=== PATIENT | female | born 1935 | race Caucasian/White ===

== ENCOUNTER → 2016-10-03 | Outpatient (CLI) | payer MEDICARE, OTHER | LOC: MW.CHIM 08:00 | DX: I48.91 Unspecified atrial fibrillation (principal) | CPT/HCPCS: 99214 ==

== ENCOUNTER → 2016-10-09 | Outpatient (CLI) | payer MEDICARE, OTHER | LOC: MW.CHFP 08:00 | PROVIDERS: ATTEND Student in an Organized Health Care Education/Training Program | DX: Z51.81 Encounter for therapeutic drug level monitoring (principal); Z79.01 Long term (current) use of anticoagulants; I48.91 Unspecified atrial fibrillation | CPT/HCPCS: 85610; 99211 ==

== ENCOUNTER → 2016-10-12 | Outpatient (CLI) | payer MEDICARE, OTHER ==
--- NOTE | 2016-10-23 19:13 | ECHO ---
The echocardiogram report can be seen in this patient's EMR in the Reports section. [facility]
== END ==
LOC: MW.US 10:45
PROVIDERS: ATTEND Internal Medicine
DX: I48.91 Unspecified atrial fibrillation (principal)
CPT/HCPCS: 93306

== ENCOUNTER → 2016-10-18 | Outpatient (CLI) | payer MEDICARE, OTHER | LOC: MW.CHFP 08:00 | PROVIDERS: ATTEND Student in an Organized Health Care Education/Training Program | DX: Z51.81 Encounter for therapeutic drug level monitoring (principal); Z79.01 Long term (current) use of anticoagulants; I48.91 Unspecified atrial fibrillation | CPT/HCPCS: 85610; 99211 ==

== ENCOUNTER → 2016-10-29 | Outpatient (CLI) | payer MEDICARE, OTHER | LOC: MW.CHFP 08:00 | PROVIDERS: ATTEND Student in an Organized Health Care Education/Training Program | DX: Z51.81 Encounter for therapeutic drug level monitoring (principal); Z79.01 Long term (current) use of anticoagulants; I48.91 Unspecified atrial fibrillation | CPT/HCPCS: 85610; 99211 ==

== ENCOUNTER → 2016-11-01 | Outpatient (CLI) | payer MEDICARE, OTHER | LOC: MW.CHFP 08:00 | PROVIDERS: ATTEND Student in an Organized Health Care Education/Training Program | DX: Z51.81 Encounter for therapeutic drug level monitoring (principal); Z79.01 Long term (current) use of anticoagulants; I48.91 Unspecified atrial fibrillation | CPT/HCPCS: 85610; 99211 ==

== ENCOUNTER → 2016-11-12 | Outpatient (CLI) | payer MEDICARE, OTHER | LOC: MW.CHFP 08:00 | PROVIDERS: ATTEND Student in an Organized Health Care Education/Training Program | DX: Z51.81 Encounter for therapeutic drug level monitoring (principal); Z79.01 Long term (current) use of anticoagulants; I48.91 Unspecified atrial fibrillation | CPT/HCPCS: 85610; 99211 ==

== ENCOUNTER → 2016-11-29 | Outpatient (CLI) | payer MEDICARE, OTHER | LOC: MW.CHFP 08:00 | PROVIDERS: ATTEND Student in an Organized Health Care Education/Training Program | DX: Z51.81 Encounter for therapeutic drug level monitoring (principal); Z79.01 Long term (current) use of anticoagulants; I48.91 Unspecified atrial fibrillation | CPT/HCPCS: 85610; 99211 ==

== ENCOUNTER → 2016-12-18 | Outpatient (CLI) | payer MEDICARE, OTHER | LOC: MW.CHIM 08:00 | PROVIDERS: ATTEND Internal Medicine | DX: I48.91 Unspecified atrial fibrillation (principal); I10 Essential (primary) hypertension; Z79.01 Long term (current) use of anticoagulants; Z95.0 Presence of cardiac pacemaker | CPT/HCPCS: 99214 ==

== ENCOUNTER → 2016-12-27 | Outpatient (CLI) | payer MEDICARE, OTHER | LOC: MW.CHFP 08:00 | PROVIDERS: ATTEND Student in an Organized Health Care Education/Training Program | DX: Z51.81 Encounter for therapeutic drug level monitoring (principal); Z79.01 Long term (current) use of anticoagulants; I48.91 Unspecified atrial fibrillation | CPT/HCPCS: 85610; 99211 ==

== ENCOUNTER 2021-05-07 00:45 | Emergency (ER) | payer MEDICARE, OTHER ==
[2021-05-07] MEDS ORDERED: Aspirin 81 MG Tab.Chew PO ONE (00:52)
[2021-05-07 01:27] LABS: BLOOD UREA NITROGEN,BUN 35 mg/dL (7.0-18.0); CARBON DIOXIDE,CO2 26.1 mmol/L (21.0-32.0); CHLORIDE,CL 98 mmol/L (98-107); GLUCOSE RANDOM 120 mg/dL (74-106); SODIUM,NA 133 mmol/L (136-145)
--- NOTE | 2021-05-07 01:27 | PCM.EKG ---
#1 Interpretation EKG Date: 05/07/21 Time: 00:51 Rhythm: Other (Atrial sensed ventricularly paced rhythm) Comparison: No Change (04/30/16) EKG Interpretation Comments: Atrial sensed ventricularly paced rhythm
--- NOTE | 2021-05-07 02:49 | CR ---
Indication: Chest pain Technique: Chest 1 view Comparison: Chest x-ray 05/09/2020 Findings/Impression: Cardiovascular and mediastinum: Mild cardiomegaly with left-sided dual lead pacemaker. Lungs and pleural space: No pleural effusion or pneumothorax. Slight patchy opacities within both lungs, likely patchy atelectasis. Bones and soft tissues: Osteopenia. Dictated by Faustino Pascal MD @ 05/07/2021 2:47:30 AM (Electronically Signed)
[2021-05-07 05:45] VITALS: BP 153/72; PULSE 62
--- NOTE | 2021-05-07 05:57 | EDM.PDOC ---
ED HPI GENERAL MEDICAL PROBLEM - General Chief Complaint: Chest Pain Stated Complaint: CHEST PAIN, NAUSEA Time Seen by Provider: 05/07/21 00:51 - History of Present Illness INITIAL COMMENTS - FREE TEXT/NARRATIVE: CHIEF COMPLAINT(S): Chest pain HISTORY OF PRESENT ILLNESS: This is an 85-year-old woman with a past medical history of hypertension and hypothyroidism who presents to the emergency department with a chief complaint of chest pain. The patient states that 4 to 5 hours prior to arrival she started to experience chest pain which she describes as pressure-like and bilateral without any radiation. She rates the pressure/pain as 0 out of 10 currently. She states that it was mild earlier. She states that she took 2 nitroglycerin tablets which seem to help with her pain. Other than the pain that happened a few hours ago she denies any exertional chest pain, dyspnea, diaphoresis, nausea or vomiting. Denies any recent travel or recent surgery. She denies any history of DVT or PE. She states that she is not vaccinated. She states that she does have a pacemaker. REVIEW OF SYSTEMS: Constitutional: Denies fever, chills. Eyes: Denies eye pain Ears, Nose, Mouth, & Throat: Denies earache Cardiovascular: Positive for chest pain. Respiratory: Denies shortness of breath Gastrointestinal: Denies Nausea, vomiting, diarrhea, hematochezia. Genitourinary: Denies hematuria Skin:Denies a rash MSK: Denies joint pain Neurological: Denies blurred vision Psychiatric: Denies depression PAST MEDICAL HISTORY: As per history of present illness and as reviewed below otherwise noncontributory. SURGICAL HISTORY: As per history of present illness and as reviewed below otherwise noncontributory. SOCIAL HISTORY: As per history of present illness and as reviewed below otherwise noncontributory. FAMILY HISTORY: As per history of present illness and as reviewed below otherwise noncontributory. EXAMINATION OF ORGAN SYSTEMS/BODY AREAS: Constitutional: Blood pressure was 139/69, heart rate 80, respiratory rate 18 with oxygen saturation 94% on room air. Temperature 36.9 General: Well-appearing woman in no acute distress Psychiatric: Appropriate mood and affect. Eyes: No scleral icterus or conjunctival erythema ENMT: Moist mucous membranes. No pharyngeal erythema Cardiovascular: Regular, rate, and rhythm. No gallops, murmurs, or rubs. Bilateral upper extremity pulses symmetric and intact. No peripheral edema. No JVD. Respiratory: Lungs clear to auscultation bilaterally. No wheezes, rales, or rhonchi. Gastrointestinal: Soft, non-tender, non-distended. Normoactive bowel sounds Genitourinary: No suprapubic tenderness Musculoskeletal: Normal range of motion. Skin: No lesions or abrasions. Neurological: Alert, GCS 15 MEDICAL DECISION MAKING AND COURSE IN THE ED WITH INTERPRETATION/REVIEW OF DIAGNOSTIC STUDIES: This is an 85-year-old woman with a past medical history of hypertension, hypothyroidism and a pacemaker who presents to the emergency department with acute onset chest pain who has normal vitals. The patient is borderline hypoxic. She states that she is not concerned about Covid therefore we will not obtain a Covid. We did obtain a screening EKG which was unre markable. We will undergo a cardiac work-up. We did place the patient on cardiac monitoring and pulse oximetry. Heart monitoring did reveal sinus rhythm and pulse oximetry with good form was 94-92 sent on room air. Laboratory: CBC is unremarkable. BMP reveals hyponatremia at 133, elevated BUN at 35 and a creatinine of 1.2. Everything at 120 and magnesium is normal. Troponin is negative. The radiological images were viewed by myself along with reading the report from the radiologist. Chest x-ray reveals no acute cardiopulmonary process. There is bilateral atelectasis with mild cardiomegaly. Admission patient continued to remain chest pain-free. I did discuss like to obtain a repeat troponin. She unable to display. We did provide the patient aspirin by mouth. Laboratory: Repeat troponin is negative. On reevaluation patient continued to not have any chest pain. At this time given that the patient does have a cardiac appointment with her animal breeder tomorrow I do not believe any further works indicated. I did encourage her to return if she had any new or worsening symptoms. She was amenable to discharge at this time and had no further questions DISPOSITION: The patient was discharged home in stable condition. The patient will follow up with primary care physician in 1 to 3 days CONDITION: Fair PROCEDURES: None FINAL IMPRESSION(S)/DIAGNOSES: 1. Acute chest pain Rowdy Gregory M.D. - Related Data Allergies Allergy/AdvReac Type Severity Reaction Status Date / Time No Known Allergies Allergy Verified 01/24/16 17:09 Home Meds: Home Meds Levothyroxine 50 mcg PO ASDIRECTED 04/30/15 [History] Rosuvastatin [Crestor] 2.5 mg PO DAILY 04/30/15 [History] Aspirin 81 mg PO BRK 01/24/16 [History] Lisinopril 5 mg PO DAILY 01/24/16 [History] Nitroglycerin [Nitrostat] 0.4 mg SL Q5M #1 bottle 04/30/16 [Rx] Metoprolol Succinate [[place] Sprinkle] 05/07/21 [History] Warfarin [Coumadin] 5 mg PO DAILY 05/07/21 [History] Past Medical History Cardiovascular History: Reports: Pacemaker, Other (See Below) Other Cardiovascular History: heart blockage Gastrointestinal History: Reports: GERD Musculoskeletal History: Reports: Arthritis Endocrine/Metabolic History: Reports: Hypothyroidism - Infectious Disease History Infectious Disease History: Reports: Chicken Pox, Measles - Past Surgical History Cardiovascular Surgical History: Reports: Pacer GI Surgical History: Reports: None Female Surgical History: Reports: Hysterectomy Musculoskeletal Surgical History: Reports: Knee Replacement Social & Family History - Family History Family Medical History: No Pertinent Family History - Tobacco Use Tobacco Use Status *Q: Never Tobacco User - Caffeine Use Caffeine Use: Reports: Coffee - Recreational Drug Use Recreational Drug Use: No ED ROS GENERAL - Review of Systems Review Of Systems: See Below ED EXAM, GENERAL - Physical Exam Exam: See Below Course - Vital Signs Last Recorded V/S: Last Vital Signs Temp 36.9 C 05/07/21 01:06 Pulse 62 05/07/21 05:45 Resp 14 05/07/21 05:45 BP 153/72 H 05/07/21 05:45 Pulse Ox 97 05/07/21 05:45 - Orders/Labs/Meds Labs: Laboratory Tests 05/07/21 05/07/21 05/07/21 Range/Units 01:00 01:00 04:00 WBC 7.11 (4.0-11.0) K/uL RBC 4.04 L (4.30-5.90) M/uL Hgb 12.8 (12.0-16.0) g/dL Hct 39.0 (36.0-46.0) % MCV 96.5 (80.0-98.0) fL MCH 31.7 (27.0-32.0) pg MCHC 32.8 (31.0-37.0) g/dL RDW Std Deviation 46.7 (28.0-62.0) fl RDW Coeff of Irvin 14 (11.0-15.0) % Plt Count 207 (150-400) K/uL MPV 9.70 (7.40-12.00) fL Neut % (Auto) 72.9 (48.0-80.0) % Lymph % (Auto) 15.3 L (16.0-40.0) % [place] % (Auto) 10.0 (0.0-15.0) % Eos % (Auto) 1.5 (0.0-7.0) % Baso % (Auto) 0.3 (0.0-1.5) % Neut # (Auto) 5.2 (1.4-5.7) K/uL Lymph # (Auto) 1.1 (0.6-2.4) K/uL [place] # (Auto) 0.7 (0.0-0.8) K/uL Eos # (Auto) 0.1 (0.0-0.7) K/uL Baso # (Auto) 0.0 (0.0-0.1) K/uL Sodium 133 L (136-145) mmol/L Potassium 4.0 (3.5-5.1) mmol/L Chloride 98 (98-107) mmol/L Carbon Dioxide 26.1 (21.0-32.0) mmol/L BUN 35 H (7.0-18.0) mg/dL Creatinine 1.2 H (0.6-1.0) mg/dL Est Cr Clr Drug Dosing 28.52 mL/min Estimated GFR (MDRD) 42.5 ml/min Glucose 120 H (74-106) mg/dL Calcium 8.8 (8.5-10.1) mg/dL Magnesium 2.0 (1.8-2.4) mg/dL Troponin I < 0.050 < 0.050 (0.000-0.056) ng/mL Meds: Medications Discontinued Medications Generic Name Dose Route Start Last Admin Trade Name Freq PRN Reason Stop Dose Admin Aspirin 324 mg 05/07/21 00:52 05/07/21 01:23 Aspirin 81 Mg Tab.Chew PO 05/07/21 00:53 Not Given ONETIME ONE Departure - Departure Time of Disposition: 05:56 Disposition: Home, Self-Care 01 Condition: Fair Clinical Impression: Chest pain - Discharge Information Instructions: Nonspecific Chest Pain, Adult, [id number], Angina, [id number] Referrals: PCP,None [Primary Care Provider] - Rosy Newby MD [Physician] - Forms: ED Department Discharge Additional Instructions: You were evaluated today on an emergent basis. At this time your heart enzyme for heart attack was negative and otherwise your labs were normal. At this time I do recommend that you use Tylenol 500 mg to 1000 mg every 6 hours for pain relief and ice the left side of your rib for you fell 20 minutes 4 times a day. As discussed you are high risk for heart issues and I do recommend that you keep your appointment with your animal breeder in 1 day. If you have any worsening pain or you are concerned please return to the emergency department. [facility] [address] [place] [address] [place] [address] The patient is informed of any results of their evaluation and diagnostic workup and all questions are answered. They are given discharge instructions and return precautions. The patient is stable for discharge. The patient states they understand and agree with the plan and that they will return if their symptoms get worse or if they have any new concerns. The following information is given to patients seen in the emergency department who are being discharged to home. This information is to outline your options for follow-up care. We provide all patients seen in our emergency department with a follow-up referral. The need for follow-up, as well as the timing and circumstances, are variable depending upon the specifics of your emergency department visit. If you don't have a primary care physician on staff, we will provide you with a referral. We always advise you to contact your personal physician following an emergency department visit to inform them of the circumstance of the visit and for follow-up with them and/or the need for any referrals to a consulting specialist. The emergency department will also refer you to a specialist when appropriate. This referral assures that you have the opportunity for follow-up care with a specialist. All of these measure are taken in an effort to provide you with optimal care, which includes your follow-up. Under all circumstances we always encourage you to contact your private physician who remains a resource for coordinating your care. When calling for follow-up care, please make the office aware that this follow-up is from your recent emergency room visit. If for any reason you are refused follow-up, please contact the Emergency Department at and asked to speak to the emergency department charge nurse.
== END 2021-05-07 06:11 | disposition home or self-care (01) ==
LOC: MW.ED 00:45
DX: R07.9 Chest pain, unspecified (principal); M19.90 Unspecified osteoarthritis, unspecified site; E03.9 Hypothyroidism, unspecified; Z95.0 Presence of cardiac pacemaker; Z79.82 Long term (current) use of aspirin; Z79.01 Long term (current) use of anticoagulants; Z79.899 Other long term (current) drug therapy
CPT/HCPCS: 36415; 71045; 71045-26; 80048; 83735; 84484; 85025; 93005; 93010; 99283; 99285-25